=== PATIENT | female | born 1980 | race Caucasian/White ===

== ENCOUNTER → 2016-05-01 | Outpatient (CLI) | payer BC ==
[2016-05-01 09:23] LABS: Basophils # (auto) 0 uL; Basophils % (auto) 0.3 % (0.0-2.0); Eosinophils # (auto) 0.1 uL; Eosinophils % (auto) 1.3 % (0.0-7.0); Hematocrit 36.8 % (36.0-46.0); Hemoglobin 11.9 g/dL (12.2-16.2); Lymphocytes # (auto) 1.4 uL; Lymphocytes % (auto) 28.9 % (10.0-50.0); Mean Corpuscular Hemoglobin 28.5 pg (28.0-32.0); Mean Corpuscular Hgb Conc. 32.3 g/dL (32.0-36.0); Mean Corpuscular Volume 88.4 fL (80.0-100.0); Mean Platelet Volume 7.7 fL (7.4-10.4); Monocytes # (auto) 0.5 uL; Monocytes % (auto) 9.1 % (0.0-12.0); Neutrophils % (auto) 60.4 % (37.0-80.0); Platelet Count (auto) 306 10^3/uL (140-450); Red Cell Distribution Width 13.9 % (11.6-16.0)
[2016-05-01 09:34] LABS: Urine Bilirubin Negative (Negative); Urine Color Yellow (Yellow); Urine Glucose Normal (Normal); Urine Ketone Negative (Negative); Urine Nitrite Negative (Negative); Urine RBC 7 /hpf (0 - 4); Urine Sperm PRESENT /hpf (None Seen); Urine Squamous Epithelial Cell FEW /hpf (<5); Urine Urobilinogen Normal (Negative)
[2016-05-01 09:35] LABS: Urine Blood 1+ /uL (Negative)
[2016-05-01 10:35] LABS: Albumin 3.7 g/dL (3.4-5.0); BUN/Creatinine Ratio 13.6; Calcium 8.4 mg/dL (8.5-10.1); Potassium 3.7 mmol/L (3.5-5.1)
== END | disposition home or self-care (01) ==
LOC: LAB 07:52
PROVIDERS: ATTEND Internal Medicine
DX: Z00.00 Encounter for general adult medical examination without abnormal findings (principal); R42 Dizziness and giddiness; Z83.49 Family history of other endocrine, nutritional and metabolic diseases
CPT/HCPCS: 36415; 80053; 80061; 81001; 85025

== ENCOUNTER → 2017-06-17 | Outpatient (CLI) | payer BC ==
[2017-06-17 09:54] LABS: Basophils # (auto) 0 uL; Basophils % (auto) 0.7 % (0.0-2.0); Eosinophils # (auto) 0 uL; Hematocrit 35.8 % (36.0-46.0); Lymphocytes # (auto) 1.6 uL; Lymphocytes % (auto) 37.9 % (10.0-50.0); Mean Corpuscular Hemoglobin 28.9 pg (28.0-32.0); Mean Corpuscular Hgb Conc. 33.6 g/dL (32.0-36.0); Mean Corpuscular Volume 85.9 fL (80.0-100.0); Monocytes # (auto) 0.3 uL; Monocytes % (auto) 7.7 % (0.0-12.0); Neutrophils # (auto) 2.2 uL; Neutrophils % (auto) 52.7 % (37.0-80.0); Platelet Count (auto) 277 10^3/uL (140-450); Red Blood Cells 4.16 10^6/uL (4.0-5.20); Red Cell Distribution Width 13.8 % (11.8-14.3); White Blood Cell 4.2 10^3/uL (4.4-10.8)
[2017-06-17 09:59] LABS: Urine Bacteria NONE SEEN /hpf (None Seen); Urine Blood Negative /uL (Negative); Urine Specific Gravity 1.017 (1.001-1.035); Urine WBC 1 /hpf (0 - 5)
[2017-06-17 10:32] LABS: Albumin 3.6 g/dL (3.4-5.0); BUN/Creatinine Ratio 16.2; Bilirubin, Total 0.9 mg/dL (0.2-1.0); Calcium 8.1 mg/dL (8.5-10.1); Potassium 3.9 mmol/L (3.5-5.1); Total Protein 7.1 g/dL (6.4-8.2)
[2017-06-17 10:36] LABS: Thyroid Stimulating Hormone 5.71 uIU/mL (0.358-3.74)
[2017-06-17 11:26] LABS: Free T4 (Free Thyroxine) 1.05 ng/dL (0.89-1.76)
== END | disposition home or self-care (01) ==
LOC: LAB 09:31
PROVIDERS: ATTEND Internal Medicine
DX: R53.83 Other fatigue (principal)
CPT/HCPCS: 36415; 80053; 80061; 81001; 82607; 83036; 84439; 84443; 84702; 85025; 85652

== ENCOUNTER → 2017-06-24 | Outpatient (CLI) | payer BC | END | disposition home or self-care (01) | LOC: LAB 11:28 | PROVIDERS: ATTEND Obstetrics & Gynecology | DX: O99.280 Endocrine, nutritional and metabolic diseases complicating pregnancy, unspecified trimester (principal); E03.9 Hypothyroidism, unspecified; Z3A.00 Weeks of gestation of pregnancy not specified | CPT/HCPCS: 36415; 84144; 84702 ==

== ENCOUNTER → 2017-09-13 | Outpatient (CLI) | payer BC ==
[2017-09-13 10:35] LABS: Free T4 (Free Thyroxine) 1.03 ng/dL (0.89-1.76)
[2017-09-13 13:44] LABS: T3 Total 1.59 ng/mL (0.60-1.81)
== END | disposition home or self-care (01) ==
LOC: LAB 07:45
PROVIDERS: ATTEND Surgery
DX: O99.280 Endocrine, nutritional and metabolic diseases complicating pregnancy, unspecified trimester (principal); E03.9 Hypothyroidism, unspecified; Z3A.00 Weeks of gestation of pregnancy not specified
CPT/HCPCS: 36415; 84439; 84443; 84480

== ENCOUNTER → 2017-11-20 | Outpatient (CLI) | payer BC ==
[2017-11-20 19:28] LABS: T3 Total 1.53 ng/mL (0.60-1.81)
== END | disposition home or self-care (01) ==
LOC: LAB 16:29
PROVIDERS: ATTEND Surgery
DX: O99.282 Endocrine, nutritional and metabolic diseases complicating pregnancy, second trimester (principal); E03.9 Hypothyroidism, unspecified; Z3A.22 22 weeks gestation of pregnancy
CPT/HCPCS: 36415; 84439; 84443; 84480

== ENCOUNTER → 2017-12-02 | Outpatient (CLI) | payer BC | END | disposition home or self-care (01) | LOC: LAB 07:17 | PROVIDERS: ATTEND Obstetrics & Gynecology | DX: O99.810 Abnormal glucose complicating pregnancy (principal); Z3A.23 23 weeks gestation of pregnancy | CPT/HCPCS: 82951; 86850; 86900; 86901 ==

== ENCOUNTER → 2017-12-27 | Outpatient (CLI) | payer BC | END | disposition home or self-care (01) | LOC: LAB 14:18 | PROVIDERS: ATTEND Obstetrics & Gynecology | DX: E03.9 Hypothyroidism, unspecified (principal) | CPT/HCPCS: 36415; 84443 ==

== ENCOUNTER 2018-01-06 11:23 | Observation (INO) | payer BC ==
[~2018-01-06] VITALS: Ht 160 cm; Wt 85.7 kg
[2018-01-06] MEDS ORDERED: LEVO50TA7 PO (12:15)
[2018-01-06] MEDS ORDERED: PREN-145 OR (12:15)
== END 2018-01-06 13:00 | disposition home or self-care (01) | DRG 833 ==
LOC: LDRP 11:23
PROVIDERS: ADMIT Obstetrics & Gynecology; ATTEND Obstetrics & Gynecology
DX: O99.283 Endocrine, nutritional and metabolic diseases complicating pregnancy, third trimester (principal); E03.9 Hypothyroidism, unspecified; O62.9 Abnormality of forces of labor, unspecified; O09.523 Supervision of elderly multigravida, third trimester; Z3A.33 33 weeks gestation of pregnancy
CPT/HCPCS: 59025; 76818; 81002; G0378

== ENCOUNTER 2018-01-13 11:11 | Observation (INO) | payer BC ==
[~2018-01-13] VITALS: Ht 160 cm; Wt 85.7 kg
[~2018-01-13 11:11] MED LIST: LEVO50TA7 PO; PREN-145 OR
== END 2018-01-13 12:45 | disposition home or self-care (01) | DRG 833 ==
LOC: LDRP 11:11
PROVIDERS: ADMIT Obstetrics & Gynecology; ATTEND Obstetrics & Gynecology
DX: O99.283 Endocrine, nutritional and metabolic diseases complicating pregnancy, third trimester (principal); E03.9 Hypothyroidism, unspecified; O09.523 Supervision of elderly multigravida, third trimester; O62.9 Abnormality of forces of labor, unspecified; Z3A.34 34 weeks gestation of pregnancy
CPT/HCPCS: 59025; 76818; 81002; G0378

== ENCOUNTER 2018-01-20 11:32 | Observation (INO) | payer BC | END 2018-01-20 13:00 | disposition home or self-care (01) | DRG 833 | LOC: LDRP 11:32 | PROVIDERS: ADMIT Obstetrics & Gynecology; ATTEND Obstetrics & Gynecology | DX: O35.8XX0 Maternal care for other (suspected) fetal abnormality and damage, not applicable or unspecified (principal); O09.523 Supervision of elderly multigravida, third trimester; Z3A.35 35 weeks gestation of pregnancy | CPT/HCPCS: 59025; 76818; 81002; G0378 ==

== ENCOUNTER → 2018-01-20 | Outpatient (CLI) | payer BC ==
[2018-01-22 08:56] LABS: Basophils # (auto) 0.1 uL; Eosinophils # (auto) 0.4 uL; Eosinophils % (auto) 6.2 % (0.0-7.0); Hematocrit 33.3 % (36.0-46.0); Lymphocytes # (auto) 0.8 uL; Lymphocytes % (auto) 12.6 % (10.0-50.0); Mean Corpuscular Hemoglobin 28.4 pg (28.0-32.0); Mean Corpuscular Hgb Conc. 32.9 g/dL (32.0-36.0); Mean Corpuscular Volume 86.4 fL (80.0-100.0); Monocytes # (auto) 0.3 uL; Monocytes % (auto) 5.3 % (0.0-12.0); Neutrophils # (auto) 4.8 uL; Neutrophils % (auto) 73.9 % (37.0-80.0); Nucleated Red Blood Cells % 0.1 %; Platelet Count (auto) 214 10^3/uL (140-450); Red Blood Cells 3.86 10^6/uL (4.0-5.20); Red Cell Distribution Width 14.2 % (11.8-14.3); White Blood Cell 6.5 10^3/uL (4.4-10.8)
[2018-01-22 09:42] LABS: Free T4 (Free Thyroxine) 0.81 ng/dL (0.89-1.76); T3 Total 1.56 ng/mL (0.60-1.81)
== END | disposition home or self-care (01) ==
LOC: LAB 13:09
PROVIDERS: ATTEND Surgery
DX: E03.9 Hypothyroidism, unspecified (principal)
CPT/HCPCS: 36415; 84439; 84443; 84480; 87081

== ENCOUNTER 2018-01-27 11:07 | Observation (INO) | payer BC | END 2018-01-27 12:45 | disposition home or self-care (01) | DRG 776 | LOC: LDRP 11:07 | PROVIDERS: ADMIT Specialist; ATTEND Specialist | DX: O99.89 Other specified diseases and conditions complicating pregnancy, childbirth and the puerperium (principal); N13.30 Unspecified hydronephrosis; O09.523 Supervision of elderly multigravida, third trimester; Z3A.36 36 weeks gestation of pregnancy | CPT/HCPCS: 59025; 76818; 81002; G0378 ==

== ENCOUNTER 2018-02-04 11:30 | Observation (INO) | payer BC | END 2018-02-04 12:25 | disposition home or self-care (01) | DRG 776 | LOC: LDRP 11:30 | PROVIDERS: ADMIT Specialist; ATTEND Specialist | DX: O99.89 Other specified diseases and conditions complicating pregnancy, childbirth and the puerperium (principal); N13.30 Unspecified hydronephrosis; O09.523 Supervision of elderly multigravida, third trimester; Z3A.37 37 weeks gestation of pregnancy | CPT/HCPCS: 76818; G0378; 59025; 81002 ==

== ENCOUNTER 2018-02-10 11:13 | Observation (INO) | payer BC ==
[~2018-02-10] VITALS: Ht 160 cm; Wt 88.0 kg
== END 2018-02-10 12:20 | disposition home or self-care (01) | DRG 833 ==
LOC: LDRP 11:13
PROVIDERS: ADMIT Obstetrics & Gynecology; ATTEND Obstetrics & Gynecology
DX: O99.283 Endocrine, nutritional and metabolic diseases complicating pregnancy, third trimester (principal); Z3A.38 38 weeks gestation of pregnancy
CPT/HCPCS: 59025; 76818; 81002; G0378

== ENCOUNTER 2018-02-21 10:20 | Observation (INO) | payer BC ==
[2018-02-21 12:09] LABS: Urine Bacteria NONE SEEN /hpf (None Seen); Urine Blood TRACE /uL (Negative); Urine Mucus FEW (None Seen); Urine Specific Gravity 1.024 (1.001-1.035); Urine WBC 186 /hpf (0 - 5)
== END 2018-02-21 11:55 | disposition home or self-care (01) | DRG 833 ==
LOC: LDRP 10:20
PROVIDERS: ADMIT Specialist; ATTEND Specialist
DX: O48.0 Post-term pregnancy (principal); O35.8XX0 Maternal care for other (suspected) fetal abnormality and damage, not applicable or unspecified; O99.283 Endocrine, nutritional and metabolic diseases complicating pregnancy, third trimester; E03.9 Hypothyroidism, unspecified; Z3A.40 40 weeks gestation of pregnancy
CPT/HCPCS: 59025; 76818; 81001; 81002; G0378

== ENCOUNTER 2018-02-23 10:00 | Observation (INO) | payer BC | END 2018-02-23 12:05 | disposition home or self-care (01) | DRG 833 | LOC: LDRP 10:00 | PROVIDERS: ADMIT Specialist; ATTEND Specialist | DX: O48.0 Post-term pregnancy (principal); O35.8XX0 Maternal care for other (suspected) fetal abnormality and damage, not applicable or unspecified; Z3A.40 40 weeks gestation of pregnancy | CPT/HCPCS: 59025; 76818; 81002; G0378 ==

== ENCOUNTER 2018-02-24 14:42 | Observation (INO) | payer BC | END 2018-02-24 15:35 | disposition home or self-care (01) | DRG 832 | LOC: LDRP 14:42 | PROVIDERS: ADMIT Obstetrics & Gynecology; ATTEND Obstetrics & Gynecology | DX: O48.0 Post-term pregnancy (principal); N13.30 Unspecified hydronephrosis; O62.9 Abnormality of forces of labor, unspecified; O99.89 Other specified diseases and conditions complicating pregnancy, childbirth and the puerperium; O12.03 Gestational edema, third trimester; O09.523 Supervision of elderly multigravida, third trimester; Z3A.40 40 weeks gestation of pregnancy | CPT/HCPCS: 59025; 76818; 81002; G0378 ==

== ENCOUNTER 2018-02-25 09:15 | Inpatient (IN) | payer BC ==
[~2018-02-25] VITALS: Ht 161.3 cm; Wt 90.3 kg
[2018-02-25] MEDS ORDERED: LACTATED RINGER'S 1,000 ML IV SCH (09:43)
[2018-02-25] MEDS ORDERED: LACT. RINGERS/OXYTOCIN 20UNITS 1,000 ML IV SCH (09:43)
[2018-02-25] MEDS ORDERED: PHISODERM TOP SOLN 240ML BTL TOP PRN (09:45)
[2018-02-25] MEDS ORDERED: NALBUPHINE HCL 10 MG/1ml INJECTION IV PRN (09:45)
[2018-02-25] MEDS ORDERED: DERMOPLAST 60ML BOTTLE TOP PRN (09:45)
[2018-02-25] MEDS ORDERED: WITCH HAZEL-GLYCERIN PAD TOP PRN (09:45)
[2018-02-25] MEDS ORDERED: LIDOCAINE 2%HCL (LOCAL ANESTH.) INJ 20ML MDV ID ONE (09:45)
[2018-02-25 10:27] LABS: Urine Bacteria FEW /hpf (None Seen); Urine Blood Negative /uL (Negative); Urine Mucus FEW (None Seen); Urine Specific Gravity 1.019 (1.001-1.035); Urine WBC 66 /hpf (0 - 5)
[2018-02-25 10:29] LABS: Basophils # (auto) 0 uL; Basophils % (auto) 0.4 % (0.0-2.0); Eosinophils # (auto) 0 uL; Eosinophils % (auto) 0.4 % (0.0-7.0); Hemoglobin 10.4 g/dL (12.2-16.2); Lymphocytes # (auto) 1.2 uL; Lymphocytes % (auto) 16.3 % (10.0-50.0); Mean Corpuscular Hemoglobin 27.3 pg (28.0-32.0); Mean Corpuscular Hgb Conc. 32.6 g/dL (32.0-36.0); Mean Corpuscular Volume 83.9 fL (80.0-100.0); Monocytes # (auto) 0.5 uL; Monocytes % (auto) 7.1 % (0.0-12.0); Neutrophils # (auto) 5.5 uL; Neutrophils % (auto) 75.8 % (37.0-80.0); Nucleated Red Blood Cells % 0.1 %; Platelet Count (auto) 210 10^3/uL (140-450); Red Blood Cells 3.81 10^6/uL (4.0-5.20); Red Cell Distribution Width 15.4 % (11.8-14.3); White Blood Cell 7.3 10^3/uL (4.4-10.8)
[2018-02-25 10:35] LABS: INR 0.92 (0.9-1.15); Partial Thromboplastin Time 27.5 sec (23.78-33.04); Prothrombin Time 9.9 sec (9.27-12.13)
[2018-02-25 11:27] LABS: Albumin 2.7 g/dL (3.4-5.0); BUN/Creatinine Ratio 17.3; Calcium 8.4 mg/dL (8.5-10.1); Potassium 3.7 mmol/L (3.5-5.1)
[2018-02-25 11:30] LABS: Bilirubin, Total 0.5 mg/dL (0.2-1.0); Total Protein 6.6 g/dL (6.4-8.2)
[2018-02-25] MEDS ORDERED: TERBUTALINE SULFATE 1 MG/ML 1ML VIAL SC ONE ×2 (13:12→13:15)
[2018-02-25] MEDS ORDERED: TETRACAINE 1% INJ 2 ML VIAL IJ ONE (13:34)
[2018-02-25] MEDS ORDERED: PHENYLEPHRINE HCL 10 MG/ML VL ONE (13:35)
[2018-02-25] MEDS ORDERED: ePHEDrine SULFATE 50 MG/ML AMP ONE (13:35)
[2018-02-25] MEDS ORDERED: MORPHINE SULF(PF) 0.5MG/ML 10ML VIAL ONE (13:35)
[2018-02-25] MEDS ORDERED: CLINDAMYCIN 600MG IV 50 ML IV ONE (13:54)
[2018-02-25] MEDS ORDERED: MIDAZOLAM HCL 1MG/1ML-2 ML VIAL ONE (14:03)
[2018-02-25] MEDS ORDERED: METOCLOPRAMIDE HCL 5MG/ml INJ 2ml VIAL ONE (14:03)
[2018-02-25] MEDS: LACTATED RINGER'S 1,000 ML IV SCH ×2 (14:48→19:18)
[2018-02-25] MEDS ORDERED: NALOXONE HCL 0.4 MG/ML VIAL IV PRN (15:00)
[2018-02-25] MEDS ORDERED: KETOROLAC TROMETH 30 MG/ML 1ML VIAL IV PRN (15:00)
[2018-02-25] MEDS ORDERED: HYDROmorphone HCL 2 MG/ML VL IV PRN (15:00)
[2018-02-25] MEDS ORDERED: RHO (D) IMMUNE GLOBULIN 300 MCG INJ IM ONE ×2 (15:00→19:45)
[2018-02-25] MEDS ORDERED: ONDANSETRON HCL 4 MG/2 ML VIAL IV ONE (15:00)
[2018-02-25] MEDS ORDERED: ONDANSETRON HCL 4 MG/2 ML VIAL IV PRN ×2 (15:00)
[2018-02-25] MEDS ORDERED: CLINDAMYCIN 900MG IV 50 ML IV ONE (15:00)
[2018-02-25 16:42] VITALS: BP 107/55
[2018-02-25 16:52] VITALS: BP 129/66
[2018-02-25] MEDS: diphenhdrAMINE HCL 50 MG/1 ML VL IV PRN ×2 (16:54→21:55)
[2018-02-25] MEDS: KETOROLAC TROMETH 30 MG/ML 1ML VIAL IV SCH ×2 (17:23→23:43)
[2018-02-25 17:27] VITALS: BP 116/65
[2018-02-25 18:30] VITALS: BP 92/53
[2018-02-25] MEDS: HYDROmorphone HCL 2 MG/ML VL IV PRN (19:09)
[2018-02-25] MEDS: CLINDAMYCIN 900MG IV 50 ML IV SCH (21:59)
[2018-02-25 23:01] VITALS: BP 106/60
[2018-02-26 01:03] VITALS: BP 94/56
[2018-02-26] MEDS: HYDROmorphone HCL 2 MG/ML VL IV PRN ×2 (01:19→09:55)
[2018-02-26 02:59] VITALS: BP 100/52
[2018-02-26 05:09] LABS: RPR Non Reactive (Non Reactive)
[2018-02-26] MEDS: CLINDAMYCIN 900MG IV 50 ML IV SCH ×2 (05:41→13:51)
[2018-02-26 05:42] LABS: Basophils # (auto) 0 uL; Basophils % (auto) 0.1 % (0.0-2.0); Eosinophils # (auto) 0 uL; Eosinophils % (auto) 0.3 % (0.0-7.0); Hematocrit 27.2 % (36.0-46.0); Hemoglobin 9.4 g/dL (12.2-16.2); Lymphocytes # (auto) 0.9 uL; Lymphocytes % (auto) 11.2 % (10.0-50.0); Mean Corpuscular Hemoglobin 29.1 pg (28.0-32.0); Mean Corpuscular Hgb Conc. 34.6 g/dL (32.0-36.0); Monocytes # (auto) 0.6 uL; Monocytes % (auto) 7.1 % (0.0-12.0); Neutrophils # (auto) 6.9 uL; Neutrophils % (auto) 81.3 % (37.0-80.0); Platelet Count (auto) 183 10^3/uL (140-450); Red Blood Cells 3.24 10^6/uL (4.0-5.20); White Blood Cell 8.5 10^3/uL (4.4-10.8)
[2018-02-26] MEDS: KETOROLAC TROMETH 30 MG/ML 1ML VIAL IV SCH ×3 (05:43→17:57)
[2018-02-26 07:00] VITALS: BP 102/52
[2018-02-26] MEDS: LEVOTHYROXINE SODIUM 50 MCG TAB PO SCH (09:00)
[2018-02-26] MEDS: LACTATED RINGER'S 1,000 ML IV SCH ×2 (09:00→14:48)
[2018-02-26] MEDS: diphenhdrAMINE HCL 50 MG/1 ML VL IV PRN (09:55)
[2018-02-26 11:15] VITALS: BP 107/51
[2018-02-26] MEDS ORDERED: HYDROcodone-ACET 5/325MG TAB PO PRN (13:45)
[2018-02-26] MEDS ORDERED: HYDROmorphone HCL 2 MG/ML VL IV PRN (14:00)
[2018-02-26 15:00] VITALS: BP 107/58
[2018-02-26] MEDS: HYDROcodone-ACET 5/325MG TAB PO PRN ×2 (15:55→20:00)
[2018-02-26] MEDS: DOCUSATE SOD 100 MG CAP PO SCH (22:49)
[2018-02-26] MEDS: IBUPROFEN 800 MG TAB PO PRN (22:49)
[2018-02-26 23:30] VITALS: BP 98/53
[2018-02-27 03:00] VITALS: BP 101/54
[2018-02-27] MEDS: LEVOTHYROXINE SODIUM 50 MCG TAB PO SCH (06:56)
[2018-02-27 07:30] VITALS: BP 104/57
[2018-02-27] MEDS: DOCUSATE SOD 100 MG CAP PO SCH ×2 (10:00→21:46)
[2018-02-27] MEDS: IBUPROFEN 800 MG TAB PO PRN ×2 (10:01→17:48)
[2018-02-27 11:00] VITALS: BP 122/63
[2018-02-27] MEDS: HYDROcodone-ACET 5/325MG TAB PO PRN ×2 (12:27→21:01)
[2018-02-27 15:00] VITALS: BP 106/65
[2018-02-27 19:00] VITALS: BP 103/61
[2018-02-28] MEDS: LEVOTHYROXINE SODIUM 50 MCG TAB PO SCH (07:21)
[2018-02-28 07:30] VITALS: BP 125/65
[2018-02-28] MEDS: IBUPROFEN 800 MG TAB PO PRN (09:54)
[2018-02-28] MEDS: DOCUSATE SOD 100 MG CAP PO SCH (09:56)
[2018-02-28 10:00] VITALS: BP 125/65
== END 2018-02-28 10:30 | disposition home or self-care (01) | DRG 787 ==
LOC: LDRP 09:15
PROVIDERS: ADMIT Specialist; ATTEND Specialist
PROC: 10D00Z1 Extraction of Products of Conception, Low, Open Approach (ICD-10-PCS; principal; 2018-02-25 13:34)
PROC: 30233S1 Transfusion of Nonautologous Globulin into Peripheral Vein, Percutaneous Approach (ICD-10-PCS; 2018-02-26)
DX: O69.81X0 Labor and delivery complicated by cord around neck, without compression, not applicable or unspecified (principal); O41.03X0 Oligohydramnios, third trimester, not applicable or unspecified; N13.30 Unspecified hydronephrosis; O99.89 Other specified diseases and conditions complicating pregnancy, childbirth and the puerperium; E03.9 Hypothyroidism, unspecified; O76 Abnormality in fetal heart rate and rhythm complicating labor and delivery; O99.284 Endocrine, nutritional and metabolic diseases complicating childbirth; Z37.0 Single live birth; Z3A.40 40 weeks gestation of pregnancy
CPT/HCPCS: 36415; 51702; 59025; 80053; 81001; 81002; 84443; 85025; 85610; 85730; 86592; 86850; 86900; 86901; 90384; 94762; 96365; 96366; 96372; 96374; 96375; G0378; J1885; J2250; J2405; J3490

== ENCOUNTER → 2018-10-22 | Outpatient (CLI) | payer BC ==
[2018-10-22 07:55] LABS: Basophils # (auto) 0 uL; Basophils % (auto) 0.3 % (0.0-2.0); Eosinophils # (auto) 0 uL; Eosinophils % (auto) 0.3 % (0.0-7.0); Hematocrit 39.8 % (36.0-46.0); Hemoglobin 13.5 g/dL (12.2-16.2); Lymphocytes # (auto) 1.2 uL; Lymphocytes % (auto) 24.2 % (10.0-50.0); Mean Corpuscular Hemoglobin 30.2 pg (28.0-32.0); Mean Corpuscular Hgb Conc. 33.8 g/dL (32.0-36.0); Mean Corpuscular Volume 89.4 fL (80.0-100.0); Monocytes # (auto) 0.5 uL; Monocytes % (auto) 8.9 % (0.0-12.0); Neutrophils # (auto) 3.4 uL; Neutrophils % (auto) 66.3 % (37.0-80.0); Nucleated Red Blood Cells % 0.1 %; Platelet Count (auto) 223 10^3/uL (140-450); Red Blood Cells 4.45 10^6/uL (4.0-5.20); Red Cell Distribution Width 14.5 % (11.8-14.3); White Blood Cell 5.1 10^3/uL (4.4-10.8)
[2018-10-22 08:16] LABS: Albumin 3.7 g/dL (3.4-5.0); Calcium 8.4 mg/dL (8.5-10.1); Magnesium 2.1 mg/dL (1.6-2.6); Potassium 3.8 mmol/L (3.5-5.1)
[2018-10-22 08:23] LABS: Bilirubin, Total 0.7 mg/dL (0.2-1.0); Total Protein 7.1 g/dL (6.4-8.2)
== END | disposition home or self-care (01) ==
LOC: LAB 07:18
PROVIDERS: ATTEND Surgery
DX: E03.9 Hypothyroidism, unspecified (principal); R53.1 Weakness; Z83.3 Family history of diabetes mellitus; D64.9 Anemia, unspecified
CPT/HCPCS: 36415; 80053; 80061; 83036; 83735; 84436; 84443; 84480; 85025

== ENCOUNTER → 2019-06-24 | Outpatient (CLI) | payer OTHER | END | disposition home or self-care (01) | LOC: LAB 10:32 | PROVIDERS: ATTEND Nurse Practitioner Family | DX: Z03.818 Encounter for observation for suspected exposure to other biological agents ruled out (principal) | CPT/HCPCS: C9803; U0003 ==

== ENCOUNTER → 2019-07-23 | Outpatient (CLI) | payer BC ==
[2019-07-23 07:33] LABS: Basophils # (auto) 0 10 ^3/uL (0-0.2); Basophils % (auto) 0.5 % (0.0-2.0); Eosinophils # (auto) 0.1 10 ^3/uL (0-0.8); Eosinophils % (auto) 1.7 % (0.0-7.0); Hematocrit 42.1 % (36.0-46.0); Lymphocytes # (auto) 1.3 10 ^3/uL (0.4-5.4); Lymphocytes % (auto) 30.1 % (10.0-50.0); Mean Corpuscular Hemoglobin 30.3 pg (28.0-32.0); Mean Corpuscular Hgb Conc. 33.3 g/dL (32.0-36.0); Monocytes # (auto) 0.3 10 ^3/uL (0-1.3); Monocytes % (auto) 7.2 % (0.0-12.0); Neutrophils # (auto) 2.7 10 ^3/uL (1.6-8.6); Neutrophils % (auto) 60.5 % (37.0-80.0); Nucleated Red Blood Cells % 0.2 %; Platelet Count (auto) 269 10^3/uL (140-450); Red Blood Cells 4.63 10^6/uL (4.0-5.20); Red Cell Distribution Width 13.9 % (11.8-14.3); White Blood Cell 4.4 10^3/uL (4.4-10.8)
[2019-07-23 08:13] LABS: Albumin 3.8 g/dL (3.4-5.0)
[2019-07-23 08:20] LABS: BUN/Creatinine Ratio 19.5; Bilirubin, Total 1.1 mg/dL (0.2-1.0); Calcium 8.2 mg/dL (8.5-10.1); Total Protein 7.3 g/dL (6.4-8.2)
[2019-07-23 08:34] LABS: Free T4 (Free Thyroxine) 1.63 ng/dL (0.89-1.76)
[2019-07-23 08:36] LABS: T3 Total 0.68 ng/mL (0.60-1.81)
== END | disposition home or self-care (01) ==
LOC: LAB 07:14
PROVIDERS: ATTEND Physician Assistant
DX: E03.9 Hypothyroidism, unspecified (principal); E66.8 Other obesity
CPT/HCPCS: 36415; 80053; 80061; 83036; 84439; 84443; 84480; 85025